=== PATIENT | male | born 1960 ===

== ENCOUNTER 2017-05-26 07:55 | Emergency (ER) | payer OTHER ==
[~2017-05-26] VITALS: Ht 177.8 cm; Wt 68.0 kg
[~2017-05-26 07:55] MED LIST: CIAL20TA PO; CYCL1TAB29 PO; LOSA25TA PO; OMEP40CA2 PO; SIMV10TA PO; VIAG100T PO
[2017-05-26 07:56] VITALS: BP 158/87; PULSE 86; RESP 20; TEMP 98.7; O2SAT 96
--- NOTE | 2017-05-26 08:03 | PD ---
HPI Chief Complaint: Injury Time Seen by Provider: 08:03 Travel History International Travel<30 days: No Contact w/Intl Traveler<30days: No Traveled to known affect area: No History of Present Illness HPI 57-year-old male presents the emergency department status post stepping wrong off a curb twisting his left ankle/foot last evening. Patient now has pain in the dorsal medial foot. He denies significant swelling, tingling, numbness, or weakness. His pain is worse with weightbearing. The pain is localized to the dorsal medial foot not the ankle itself. He has no other injuries. Pain is a 5 out of 10 while ambulating. He has no known drug allergies. [facility] Social History Alcohol Use: Yes Tobacco Use: No (patient recently quit 2 months ago.) Substance Use: No Allergies-Medications (Allergen,Severity, Reaction): Coded Allergies: No Known Allergies (Unverified , 05/26/17) Reported Meds & Prescriptions Reported Meds & Active Scripts Active Viagra (Sildenafil Citrate) 100 Mg Tab 100 Mg PO DAILY PRN Reported Cialis (Tadalafil) 20 Mg Tab 20 Mg PO DIRECTED PRN Do not exceed 1 dose/day. Simvastatin 10 Mg Tab 10 Mg PO DAILY Omeprazole 40 Mg Cap 40 Mg PO DAILY Losartan (Losartan Potassium) 25 Mg Tab 25 Mg PO DAILY Flexeril (Cyclobenzaprine HCl) 10 Mg Tab 10 Mg PO TID Review of Systems Except as stated in HPI: all other systems reviewed are Neg General / Constitutional: No: Fever Eyes: No: Visual changes HENT: No: Headaches Cardiovascular: No: Chest Pain or Discomfort Respiratory: No: Shortness of Breath Gastrointestinal: No: Abdominal Pain Genitourinary: No: Dysuria Musculoskeletal: Positive: Arthralgias, Limited ROM, Pain (see history of present illness.) Skin: No Rash Neurologic: No: Weakness Psychiatric: No: Depression Endocrine: No: Polydipsia Hematologic/Lymphatic: No: Easy Bruising Physical Exam Narrative GENERAL: Patient appears in no acute distress. SKIN: Warm and dry. Normal color. Normal turgor. No ecchymosis. HEAD: Atraumatic. Normocephalic. EYES: Pupils equal and round. No scleral icterus. No injection or drainage. ENT: No nasal bleeding or discharge. Mucous membranes pink and moist. Pharynx is clear. Airway is patent. NECK: Trachea midline. Supple and nontender. CARDIOVASCULAR: Regular rate and rhythm. RESPIRATORY: No accessory muscle use. Clear to auscultation. Breath sounds equal bilaterally. MUSCULOSKELETAL: Extremities without clubbing, cyanosis, or edema. No obvious deformities. Patient complains of tenderness with palpation to the dorsal medial left foot. Range of motion is full and intact. Left ankle is unremarkable for acute findings. NEUROLOGICAL: Awake and alert. No obvious cranial nerve deficits. Motor grossly within normal limits. Five out of 5 muscle strength in the arms and legs. Normal speech. PSYCHIATRIC: Appropriate mood and affect; insight and judgment normal. Data Data Last Documented VS Vital Signs Date Time Temp Pulse Resp B/P Pulse Ox O2 Delivery O2 Flow Rate FiO2 05/26/17 08:10 Room Air 05/26/17 07:56 98.7 86 20 158/87 96 Orders Foot, Complete ([id number]) (05/26/17 08:05) [facility] Medical Decision Making Medical Screen Exam Complete: Yes Emergency Medical Condition: Yes Differential Diagnosis Left foot sprain. Left foot fracture. Ankle fracture. Narrative Course Patient is medically stable at time of exam. X-ray of the left foot is ordered. X-ray shows no acute fracture or other findings per radiologist. Patient is given ibuprofen 600 mg 4 times a day #40. Patient should ice the area and wear a stiff soled shoe as discussed. Patient follow up if symptoms do not improve or worsen as discussed. Diagnosis Primary Impression: Unspecified sprain of left foot, initial encounter Referrals: Primary Care Physician as needed Patient Instructions: Foot Sprain (ED), General Instructions Additional Instructions: X-ray shows no acute fracture or other findings per radiologist. Patient is given ibuprofen 600 mg 4 times a day #40. Patient should ice the area and wear a stiff soled shoe as discussed. Patient follow up if symptoms do not improve or worsen as discussed. Med/Other Pt SpecificInfo: Prescription(s) given Disposition: 01 DISCHARGE HOME Condition: Stable aSmuel Byrnes May 26, 2017 08:03
--- NOTE | 2017-05-26 08:24 | RADRPT ---
EXAM DATE/TIME: 05/26/2017 08:13 [place] COMPARISON: No previous studies available for comparison. INDICATIONS : Left posterior foot pain, twisted MEDICAL HISTORY : None. SURGICAL HISTORY : None. ENCOUNTER: Initial ACUITY: 2 days PAIN SCORE: 5/10 LOCATION: Left Foot FINDINGS: Three view examination of the left foot demonstrates no soft tissue swelling, dislocation, or fractur e. The tarsal bones appear intact. The interphalangeal and metatarsophalangeal joints are intact. The calcaneus is intact. Bony mineralization is normal. CONCLUSION: No acute disease. Jimenez Schmidt MD on May 26, 2017 at 8:22 Board Certified Radiologist. This report was verified electronically.
[2017-05-26] MEDS ORDERED: IBUP-232 PO (08:32)
== END 2017-05-26 08:50 | disposition home or self-care (01) ==
LOC: NEPK 07:55
DX: S93.602A Unspecified sprain of left foot, initial encounter (principal); X50.1XXA Overexertion from prolonged static or awkward postures, initial encounter
CPT/HCPCS: 73630; 99283; E0113